=== PATIENT | female | born 1990 | race Caucasian/White ===

== ENCOUNTER 2017-06-14 18:47 | Emergency (ER) | payer OTHER ==
[2017-06-14 18:59] VITALS: TEMP 98.1; BMI 29.2
[2017-06-14] MEDS ORDERED: ACETAMINOPHEN 325 MG TABLET (FP) PO ONE (21:41)
[2017-06-14] MEDS ORDERED: ACETAMINOPHEN 325 MG TABLET (FP) ONE (22:15)
--- NOTE | 2017-06-14 22:49 | PDOC ---
History of Present Illness - General Chief Complaint: Chest Pain Stated Complaint: CHEST PAIN/Face tingling Sunday Time Seen by Provider: 06/14/17 21:18 History Source: Patient Exam Limitations: No Limitations - History of Present Illness Initial Comments: 06/14/17 22:49 This is a 27 yo woman [facility] significant history who presents today with 4 days of constant midsternal chest tightness and intermittent total face tingling for 2 days. She was evaluated at [facility] and was told she was anxious. She was given Benadryl without relief. She reports occasional dry unproductive cough. She is finishing a course of Augmentin for left AOM and has 3 doses left. She denies SOB, nausea, vomiting, headaches, fevers, chills, dizziness, abdominal pain. She denies periods of inactivity, OCP or smoking. Presenting Symptoms: Chest Pain, Other (facial tingling) Timing/Duration: reports: constant (chest tightness), intermittent (facial tingling) Severity/Quality: reports: mild, tightness Location: reports: central Chest Pain Radiation: reports: no radiation Activities at Onset: reports: rest Prior Chest Pain/Cardiac Workup: reports: No prior chest pain, No prior cardiac workup Associated Symptoms: Yes: Denies symptoms Past History - Travel Traveled outside of the country in the last 30 days: No Close contact w/someone who was outside of country & ill: No - Past Medical History Allergies/Adverse Reactions: Allergies Allergy/AdvReac Type Severity Reaction Status Date / Time No Known Allergies Allergy Verified 06/14/17 18:59 Home Medications: Ambulatory Orders Azithromycin [Zithromax 250mg Tablets -] 250 mg PO UTDICT #6 tab 06/14/17 Psychiatric Problems: (possible anxiety) - Psycho/Social/Smoking Cessation Hx Suicidal Ideation: No Smoking History: Current every day smoker Number of Cigarettes Smoked Daily: 5 Information on smoking cessation initiated: Yes 'Breaking Loose' booklet given: 06/14/17 Hx Alcohol Use: No Drug/Substance Use Hx: No Substance Use Type: None Review of Systems - Review of Systems Able to Perform ROS?: Yes Is the patient limited [place]i proficient: No Constitutional: No: Symptoms Reported HEENTM: Yes: Other (facial tingling) Respiratory: No: Symptoms reported Cardiac (ROS): Yes: Chest Tightness ABD/GI: No: Symptoms Reported : No: Symptoms Reported Musculoskeletal: No: Symptoms Reported Integumentary: No: Symptoms Reported Neurological: Yes: Tingling (facial) *Physical Exam - Vital Signs Last Vital Signs Temp Pulse Resp BP Pulse Ox 98.1 F 65 15 119/73 100 06/14/17 18:57 06/14/17 23:53 06/14/17 23:53 06/14/17 23:53 06/14/17 23:53 - Physical Exam General Appearance: Yes: Appropriately Dressed. No: Apparent Distress HEENT: positive: EOMI, NIDHI, Normal ENT Inspection, TM Bulging (left TM without fluid present) Neck: positive: Trachea midline, Supple Respiratory/Chest: positive: Lungs Clear, Normal Breath Sounds. negative: Chest Tender, Respiratory Distress, Accessory Muscle Use Cardiovascular: positive: Regular Rhythm, Regular Rate, S1, S2. negative: Edema , JVD, Murmur Vascular Pulses: Dorsalis-Pedis (R): 2+, Doralis-Pedis (L): 2+ Gastrointestinal/Abdominal: positive: Normal Bowel Sounds, Soft. negative: Tender, Organomegaly Musculoskeletal: positive: Normal Inspection. negative: CVA Tenderness Extremity: positive: Normal Capillary Refill, Normal Inspection, Normal Range of Motion, Pelvis Stable Integumentary: positive: Normal Color, Dry, Warm Neurologic: positive: respiratory therapist assistant II-XII NML intact, Fully Oriented, Alert, Normal Mood/ Affect, Normal Response, Motor Strength 5/5 Heart Score/ECG Review - History History: Slightly suspicious - Electrocardiogram EKG: Normal - Age Age: </= 45 - Risk Factors Risk Factors Heart Score: Yes Hx Obesity Based on the list above the patient has:: 1-2 risk factors - ECG Intrepretation Rhythm: Regular Rhythm - [place]: Normal - ST and T Non Specific ST-T Wave changes: No - ECG Impressions Normal ECG: Yes ED Treatment Course - ADDITIONAL ORDERS Additional order review: Laboratory Results 06/14/17 21:55 Urine HCG, Qual Negative - RADIOLOGY Radiology Studies Ordered: Category Date Time Status CHEST PA & LAT [RAD] Stat Radiology 06/14/17 21:42 Completed - Medications Given in the ED: ED Medications Discontinued Medications Generic Name Dose Route Start Last Admin Trade Name Freq PRN Reason Stop Dose Admin Acetaminophen 650 mg 06/14/17 21:41 06/14/17 22:17 Tylenol - PO 06/14/17 21:42 650 mg ONCE ONE Administration Medical Decision Making - Medical Decision Making 06/14/17 22:56 A/P: This is a 27 yo woman [facility] significant history who presents today with 4 days of constant midsternal chest tightness and intermittent total face tingling for 2 days. She was evaluated at [facility] and was told she was anxious. She was given Benadryl without relief. She reports occasional dry unproductive cough. She is finishing a course of Augmentin for left AOM and has 3 doses left. She denies SOB, nausea, vomiting, headaches, fevers, chills, dizziness, abdominal pain. She denies periods of inactivity, OCP or smoking. Lungs CTAB. Respirations even and unlabored. No leg swelling present. Left TM bulging without fluid present. Less likely PE given PERC rule-0. Less likely cardiac. DDx: PNA vs bronchitis I will get a CXR, EKG and give tylenol 650mg now. 06/14/17 23:56 CXR- No acute pulmonary process. EKG- [id number]@79 I discussed the physical exam findings, ancillary test results and final diagnoses with the patient. I answered all of the patient's questions. The patient was satisfied with the care received and felt comfortable with the discharge plan and treatment plan. The patient will call Dr. Olmos within 24 hours to arrange follow-up and will return to the Emergency Department with any new, persistent or worsening symptoms. *DC/Admit/Observation/Transfer Diagnosis at time of Disposition: Bronchitis - Discharge Dispostion Admit: No - Prescriptions Prescriptions: Azithromycin [Zithromax 250mg Tablets -] 250 mg PO UTDICT #6 tab - Patient Instructions Printed Discharge Instructions: DI for Acute Bronchitis Additional Instructions: Keep well hydrated. Take Zithromax as prescribed. Make an appointment with Dr. Olmos within 1 week. Return to the ER for any shortness of breath, worsening chest pain or any other complaints.
[2017-06-14 23:53] VITALS: BP 119/73; PULSE 65
--- NOTE | 2017-06-16 08:20 | EKG ---
Test Reason : Blood Pressure : / mmHG Vent. Rate : 079 BPM Atrial Rate : 079 BPM P-R Int : 146 ms QRS Dur : 084 ms QT Int : 378 ms P-R-T Axes : 061 070 043 degrees QTc Int : 433 ms NORMAL SINUS RHYTHM NORMAL ECG NO PREVIOUS ECGS AVAILABLE Confirmed by EMILEE BUTLER, YO ([id number]) on 06/16/2017 8:19:46 AM Referred By: Confirmed By:YO HEBERT MD
== END 2017-06-15 00:14 | disposition home or self-care (01) ==
LOC: JER 18:47
DX: J40 Bronchitis, not specified as acute or chronic (principal)
CPT/HCPCS: 71020-TC; 84703; 93005; 93010; 99282-25